=== PATIENT | female | born 1970 | race Caucasian/White ===

== ENCOUNTER → 2017-06-24 | Outpatient (CLI) | payer BC ==
--- NOTE | 2017-06-25 07:57 | MAMMOGRAPHY REPORT ---
BILATERAL DIGITAL SCREENING MAMMOGRAM TOMOSYNTHESIS WITH CAD: 06/24/2017 CLINICAL HISTORY: Routine screening. TECHNIQUE: Breast tomosynthesis in addition to standard 2D mammography was performed. Current study was also evaluated with a Computer Aided Detection (CAD) system. COMPARISON: Comparison is made to exams dated: 06/18/2016 mammogram, 06/06/2015 mammogram, 06/03/2014 ma mmogram, 04/14/2013 mammogram, 03/27/2012 mammogram, and 02/27/2011 mammogram - [facility]. BREAST COMPOSITION: There are scattered areas of fibroglandular density in both breasts. FINDINGS: There is stable 3 x 4 cm focal asymmetry in the 12:00 left breast, which is unchanged datin g back to at least 02/27/2011, therefore likely benign. No new suspicious mass, architectural distor tion or cluster of microcalcifications is seen. IMPRESSION: ACR BI-RADS CATEGORY 1: NEGATIVE There is no mammographic evidence of malignancy. A 1 year screening mammogram is recommended. The pa tient will receive written notification of the results. Approximately 10% of breast cancers are not detected with mammography. A negative mammographic report should not delay biopsy if a clinically suggestive mass is present. Rosa Elena Powell M.D. ay/:06/24/2017 16:11:17 Rn Concurrent Review: Flako PLATA(Tiago)(M), [facility] letter sent: Normal 1/2 BI-RADS Code: ACR BI-RADS Category 1: Negative
== END | disposition home or self-care (01) ==
LOC: C.MAMM 07:52
PROVIDERS: ATTEND Obstetrics & Gynecology
DX: Z12.31 Encounter for screening mammogram for malignant neoplasm of breast (principal)

== ENCOUNTER → 2017-09-18 | Outpatient (CLI) | payer BC | END | disposition home or self-care (01) | LOC: C.PAPS 12:07 | PROVIDERS: ATTEND Obstetrics & Gynecology | DX: Z01.419 Encounter for gynecological examination (general) (routine) without abnormal findings (principal) ==

== ENCOUNTER → 2018-06-30 | Outpatient (CLI) | payer OTHER ==
--- NOTE | 2018-07-01 13:38 | MAMMOGRAPHY REPORT ---
BILATERAL DIGITAL SCREENING MAMMOGRAM TOMOSYNTHESIS WITH CAD: 06/30/2018 CLINICAL HISTORY: Routine screening. TECHNIQUE: The study was acquired using full field digital technology and interpreted from soft copy. Breast tomosynthesis in addition to standard 2D mammography was performed. Current study was also ev aluated with a Computer Aided Detection (CAD) system. COMPARISON: Comparison is made to exams dated: 06/24/2017 mammogram, 06/18/2016 mammogram, 06/06/2015 ma mmogram, 06/03/2014 mammogram, 04/14/2013 mammogram, and 03/27/2012 mammogram - [facility]. BREAST COMPOSITION: There are scattered areas of fibroglandular density in both breasts. FINDINGS: There is a possible focal area of architectural distortion in the approximate 12:00 middle one third of the right breast, for which additional spot compression tomosynthesis views and possible ultrasound are recommended. There is a stable 3.7 cm focal asymmetry in the central versus 12:00 left breast. No other suspicious mass, architectural distortion or cluster of microcalcifications is seen. IMPRESSION: ACR BI-RADS CATEGORY 0: INCOMPLETE EVALUATION: NEED ADDITIONAL IMAGING EVALUATION The possible focal area of architectural distortion in the approximate 12:00 right breast needs addit ional evaluation. The patient will be called to schedule an appointment. Some breast cancers are not detected with mammography. A negative mammographic report should not maykel y biopsy if a clinically suggestive mass is present. Rosa Elena Powell M.D. ay/:06/30/2018 19:37:06 Peripheral Edp Equipment Operator: RT Bong(R)(M), [facility] letter sent: Addl Imaging 0 BI-RADS Code: ACR BI-RADS Category 0: Incomplete Evaluation: Need Additional Imaging Evaluation
== END | disposition home or self-care (01) ==
LOC: C.MAMM 08:08
PROVIDERS: ATTEND Obstetrics & Gynecology
DX: Z12.31 Encounter for screening mammogram for malignant neoplasm of breast (principal); R92.8 Other abnormal and inconclusive findings on diagnostic imaging of breast

== ENCOUNTER 2019-02-08 21:02 | Inpatient (IN) ==
[2019-02-08] MEDS ORDERED: SODIUM CHLORIDE 0.9% 1000ML 2,000 ML IV ONE (21:16)
[2019-02-08] MEDS ORDERED: KETOROLAC TROMETHAMINE 15 MG/ML VIAL IV ONE (21:16)
[2019-02-08] MEDS ORDERED: ASPIRIN CHEW 324 MG PO STA (21:16)
[2019-02-08] MEDS ORDERED: LORazepam 1 MG/2 ML VIAL IV STA (21:16)
[2019-02-08 21:38] LABS: Basophils # (auto) 0.03 K/uL (0-0.2); Basophils % (auto) 0.3 %; Eosinophils # (auto) 0.09 K/uL (0-0.5); Eosinophils % (auto) 0.8 %; Hematocrit (blood only) 41.6 % (37-47); Hemoglobin 14.3 g/dL (12.0-16.0); Immature Granulocytes # (auto) 0.04 K/uL (0.00-0.02); Immature Granulocytes % (auto) 0.4 %; Lymphocytes # (auto) 3.27 K/uL (1.2-3.4); Lymphocytes % (auto) 30.1 %; Mean Corpuscular Hgb Conc 34.4 g/dL (32-36); Mean Corpuscular Volume 87.6 fL (80-100); Mean Platelet Volume 10.3 fL (7.4-10.4); Monocytes # (auto) 0.98 K/uL (0.11-0.59); Neutrophils # (auto) 6.46 K/uL (1.4-6.5); Neutrophils % (auto) 59.4 %; Platelet Count 207 K/uL (130-400); RDW Coefficient of Variation 13.3 % (11.5-14.5); RDW Standard Deviation 42.3 fL (36.4-46.3); Red Blood Count 4.75 M/uL (4.2-5.4); White Blood Count 10.87 K/uL (4.8-10.8)
[2019-02-08 21:54] LABS: Albumin Level 3.5 gm/dl (3.4-5.0); BUN Creatinine Ratio 8.1 (10-20); Calcium 9.8 mg/dl (8.5-10.1); Creatinine Clr Calc Pharmacy 85.3 ml/min; Est GFR (African American) 66.6; Est GFR (Non-African American) 57.4; Potassium 3.5 mmol/L (3.5-5.1)
[2019-02-08 22:09] LABS: Bilirubin,Total 0.5 mg/dl (0.2-1); Troponin I 0.082 ng/ml (0-0.045)
[2019-02-08 22:10] LABS: Albumin Globulin Ratio 0.8 (0.9-2); Globulin 4.5 gm/dl (2.5-4.0)
--- NOTE | 2019-02-08 22:14 | XRay Report ---
SINGLE VIEW CHEST CLINICAL HISTORY: Atypical chest pain. FINDINGS: An AP, portable, upright chest radiograph is obtained. No prior studies are available for c omparison at the time of dictation. The examination is degraded by portable technique, large body hab itus, and patient rotation. The cardiomediastinal silhouette is unremarkable. There are low lung vol umes and bibasilar atelectasis. The lungs and pleural spaces are otherwise clear. No pneumothorax is seen. The bony thorax is grossly intact. IMPRESSION: Low lung volumes with no acute cardiopulmonary abnormality. Electronically signed by: Zaid Borges M.D. 02/08/2019 10:13 PM
[2019-02-08] MEDS ORDERED: OPTIRAY 320 125ml IV PRN (22:43)
--- NOTE | 2019-02-08 23:03 | CT Scan Report ---
CT ANGIOGRAM OF THE CHEST CLINICAL HISTORY: Atypical chest pain. COMPARISON STUDY: Chest x-ray dated 02/08/2019. TECHNIQUE: Following the IV administration of 119 cc of Optiray 320, CT angiogram of the chest was pe rformed from the upper abdomen to the thoracic inlet utilizing the pulmonary embolus protocol. Images are reviewed in the axial, sagittal, and coronal planes. 3-D MIPS images are created and assessed. I V contrast was administered without complication. A dose lowering technique was utilized adhering to the principles of ALARA. The examination is degraded by large body habitus, and by streak artifact f rom the body wall abutting the CT gantry. CT DOSE: 564.42 mGycm FINDINGS: Thyroid: Imaged portions of the thyroid gland are normal in size and attenuation. Thoracic aorta: The thoracic aorta is normal in caliber and demonstrates standard 3-vessel arch anato my. No dissection is seen. Pulmonary vasculature: The pulmonary trunk is mildly dilated measuring up to 3.2 cm in diameter. This suggests pulmonary artery hypertension. There are bilateral pulmonary emboli. Large filling defect i dentified within the right upper, middle, and lower lobe pulmonary artery branches. These extend into Segmental and subsegmental branches. Segmental and subsegmental pulmonary bladder also seen within b ranches of the left upper and left lower lobe pulmonary arteries. Heart: The heart is normal in size and without pericardial effusion. Lungs and pleural spaces: The lungs and pleural spaces are clear. The trachea and central airways are patent. Mediastinum: There is no mediastinal lymphadenopathy. Kim: Clear. Axillae: There is no axillary lymphadenopathy. Upper abdomen: The liver is enlarged and steatotic. There is a tiny hiatal hernia. Skeletal structures: No lytic or blastic bony lesions are seen. Soft tissues: There is a 3.8 cm asymmetric density identified in the left breast as seen on image #20 0. IMPRESSION: 1. Extensive bilateral pulmonary emboli as above. 2. The lungs are clear. 3. There is a 3.8 cm asymmetric density identified in the left breast. Although not well assessed by CT, neoplasm could have this appearance. Follow-up at the breast center for mammogram and targeted ul trasound is recommended. 4. Hepatomegaly and hepatic steatosis. 5. Additional findings as above. Electronically signed by: Zaid Borges M.D. 02/08/2019 11:02 PM
[2019-02-08 23:19] LABS: Partial Thromboplastin Ratio 0.9; Partial Thromboplastin Time 23.9 Seconds (21.0-31.0); Prothrombin Time 10.2 Seconds (9.0-12.0)
[2019-02-08] MEDS ORDERED: HEPARIN 25000 UNIT/500 ML D5W IV ONE (23:41)
[2019-02-08] MEDS ORDERED: HEPARIN SOD 5,000 UNIT/0.5 ML VIAL ONE (23:41)
--- NOTE | 2019-02-09 00:19 | Emergency Department Note ---
Entered by Abelardo Aguirre acting as a scribe for Remberto Crespo DO History of Present Illness General Chief complaint: Chest Pain Stated complaint: REFERRED FOR CTS - R/O PE, CHEST PAIN Source: patient Limitations: no limitations History of Present Illness Provider complaint: Chest Pain Onset (ago): day(s) (2) Location: chest Pain Consistency: + intermittent Maximum Pain Intensity: 5 Quality: + other ("tightness" in chest) Associated symptoms: + cough, + headaches and + shortness of breath Treatments prior to arrival: other (Evaluation by PCP - D-dimer positive) The patient is a 48 year old female who presents to the Emergency Room with complaints of intermittent chest pain for the past two days. The patient states that her symptoms first began 1 week ago when she began to have difficulty sleeping. Two days ago she began to feel "tightness" across her chest intermittently. She also complains of a persistent cough, runny nose, and shortness of breath with minimal exertion. She notes that she felt short of breath with "changing her sheets" which is very unusual for her. She has also had a constant headache since Friday as well. The patient saw her PCP today who obtained a positive D-dimer test. The patient denies any history of heart disease, smoking, blood clots, or recent rips/travel. She does have a history of hypertension. Home Medications Home Medications Medication Instructions Recorded Confirmed Type ascorbic acid (vitamin C) [Vitamin 500 mg PO DAILY 02/08/19 02/08/19 History C] biotin 1 mg PO DAILY 02/08/19 02/08/19 History calcium carbonate-vitamin D3 1 tab PO DAILY 02/08/19 02/08/19 History [Calcium 500 + D (D3)] cholecalciferol (vitamin D3) 1,000 unit PO DAILY 02/08/19 02/08/19 History [Vitamin D3] clonazepam [Klonopin] 0.5 mg PO BID PRN 02/08/19 02/08/19 History fluticasone propionate [Flonase 2 spray INTRANASAL DAILY PRN 02/08/19 02/08/19 History Allergy Relief] levothyroxine [Synthroid] 25 mcg PO DAILY 02/08/19 02/08/19 History losartan-hydrochlorothiazide 1 tab PO DAILY 02/08/19 02/08/19 History [Hyzaar] meloxicam [Mobic] 15 mg PO DAILY 02/08/19 02/08/19 History metformin [Glucophage XR] 750 mg PO BID 02/08/19 02/08/19 History montelukast [Singulair] 10 mg PO DAILY 02/08/19 02/08/19 History multivitamin 1 tab PO DAILY 02/08/19 02/08/19 History norgestimate-ethinyl estradiol 1 tab PO DAILY 02/08/19 02/08/19 History [Sprintec (28)] Allergies Allergy/AdvReac Type Severity Reaction Status Date / Time Tetracyclines AdvReac Severe chest Verified 02/08/19 23:02 tightness erythromycin base AdvReac yeast Verified 02/08/19 23:02 infection Past Med/Surg History Medical History HTN (hypertension) Social History Smoking Status: Never smoker Review of Systems See HPI for pertinent positives & negatives. and A total of 10 systems reviewed and were otherwise negative Physical Exam Vital Signs Vital Signs - 24 hr 02/08/19 21:07 02/08/19 21:10 02/08/19 22:00 Sepsis Recent Fever Within 48 Hours No Sepsis New/Unexplained Change in Mental Status No Sepsis Action Taken by Nursing No Action Required Pulse Rate 108 H 115 H 99 H Pulse Rate from SpO2 Sensor 115 H Pulse Rhythm Regular Pulse Strength Normal Respiratory Rate 20 22 22 Respiratory Effort / Characteristics Non-Labored Spontaneous Respiratory Depth Normal Respiratory Pattern Regular Blood Pressure 141/101 H 160/109 H 155/89 H Blood Pressure Mean 114 126 111 Pulse Oximetry 96 98 Oxygen Delivery Method Room Air 02/08/19 22:46 02/08/19 23:01 02/08/19 23:31 Sepsis Recent Fever Within 48 Hours Sepsis New/Unexplained Change in Mental Status Sepsis Action Taken by Nursing Pulse Rate 104 H 112 H 107 H Pulse Rate from SpO2 Sensor Pulse Rhythm Pulse Strength Respiratory Rate 19 27 H 26 H Respiratory Effort / Characteristics Respiratory Depth Respiratory Pattern Blood Pressure 157/90 H 169/91 H 168/92 H Blood Pressure Mean 112 117 117 Pulse Oximetry 95 96 97 Oxygen Delivery Method GENERAL: Sitting up in bed, alert, anxious and tearful appearing, non-toxic EYE EXAM: normal conjunctiva. OROPHARYNX: no exudate, no erythema, lips, buccal mucosa, and tongue normal and mucous membranes are moist NECK: supple, no nuchal rigidity, no adenopathy, non-tender LUNGS: Clear to auscultation. Normal chest wall mechanics HEART: Tachycardic. no murmurs, S1 normal and S2 normal ABDOMEN: abdomen soft, non-tender, normo-active bowel, sounds, no masses, no rebound or guarding. BACK: Back is symmetrical on inspection and there is no deformity, no midline tenderness, no CVA tenderness. SKIN: no rashes and no bruising UPPER EXTREMITIES: upper extremities are grossly normal. LOWER EXTREMITIES: No pitting edema. NEURO EXAM: Normal sensorium, cranial nerves II-XII grossly intact, normal speech, no gross weakness of arms, no gross weakness of legs. Course ED COURSE: Vital signs were reviewed and showed hypertension and tachycardia. The patients medical record was reviewed The above diagnostic studies were performed and reviewed. ED treatments and interventions as stated above. 2108: The patient was evaluated in room A9B. A complete history and physical examination was performed. 2306: I made the [facility] Hospitalist Service aware of the patient at this time. 2310: Upon reevaluation, the patient is resting in bed. I discussed my findings with the patient and she understands and agrees with the treatment plan. Based on the patients age, coexisting illnesses, exam and lab findings the decision to treat as an inpatient was made. The patient remained stable while under my care. The patient will be evaluated for further management. Administered Medications Ioversol (Optiray 320 125ml) 125 ml IV ONCE PRN PRN Reason: Interaction Checking Stop: 02/12/19 22:42 Last Admin: 02/08/19 22:43 Dose: 119 ml Documented by: [id number] Discontinued Medications Aspirin (Aspirin) 324 mg PO NOW STA Stop: 02/08/19 21:17 Last Admin: 02/08/19 21:43 Dose: 324 mg Documented by: [id number] Heparin Sodium (Porcine) (Heparin Sodium (Porcine)) Confirm Administered Dose 5,000 units .ROUTE .STK-MED ONE Stop: 02/08/19 23:42 Last Admin: 02/08/19 23:51 Dose: 5,000 units Documented by: [id number] Cosigned by: [id number] Heparin Sodium/Dextrose () 1 ea IV NOW STA; Protocol Stop: 02/08/19 22:50 Last Admin: 02/08/19 23:52 Dose: Not Given Documented by: [id number] Heparin Sodium/Dextrose (Heparin Sodium/Dextrose) Confirm Administered Dose 25,000 units IV .STK-MED ONE Stop: 02/08/19 23:42 Last Admin: 02/08/19 23:51 Dose: 1,600 units Documented by: [id number] Cosigned by: [id number] Sodium Chloride (Nss 1000ml) 2,000 mls @ 999 mls/hr IV .Q2H1M ONE Stop: 02/08/19 23:16 Last Infusion: 02/08/19 23:57 Dose: 0 mls/hr Documented by: [id number] Admin: 02/08/19 21:45 Dose: 999 mls/hr Documented by: [id number] Lorazepam (Ativan) 1 mg in 2 mls @ 0.5 mls/min IV UD STA Stop: 02/08/19 21:19 Last Admin: 02/08/19 21:44 Dose: 0.5 mls/min Documented by: [id number] Ketorolac Tromethamine (Toradol) 15 mg IV NOW ONE Stop: 02/08/19 21:17 Last Admin: 02/08/19 21:43 Dose: 15 mg Documented by: [id number] Medical Decision Making Differential Diagnosis Differential diagnosis: Etiologies such as shingles, musculoskeletal pain, pericarditis, myocarditis, cardiac ischemia, pericardial tamponade, pneumonia, pneumothorax, pleural effusion, hemothorax, pleurisy, aortic pathology, pulmonary embolism, intra- abdominal process, as well as others were considered. Medical Records Attestation: I reviewed the patient's medical records. Home Medications Current Medication List: was personally reviewed by me Laboratory Data Attestation: I reviewed the patient's lab results. Result diagrams: 02/08/19 21:26 02/08/19 21:26 Lab Results 02/08/19 02/08/19 02/08/19 Range/Units 21:26 21:26 21:27 WBC 10.87 H (4.8-10.8) K/uL RBC 4.75 (4.2-5.4) M/uL Hgb 14.3 (12.0-16.0) g/dL Hct 41.6 (37-47) % MCV 87.6 (80-100) fL MCH 30.1 (25-34) pg MCHC 34.4 (32-36) g/dL RDW Std Deviation 42.3 (36.4-46.3) fL RDW Coeff of Izabel 13.3 (11.5-14.5) % Plt Count 207 (130-400) K/uL MPV 10.3 (7.4-10.4) fL Immature Gran % (Auto) 0.4 % Neut % (Auto) 59.4 % Lymph % (Auto) 30.1 % Yell % (Auto) 9.0 % Eos % (Auto) 0.8 % Baso % (Auto) 0.3 % Immature Gran # (Auto) 0.04 H (0.00-0.02) K/uL Neut # (Auto) 6.46 (1.4-6.5) K/uL Lymph # (Auto) 3.27 (1.2-3.4) K/uL Yell # (Auto) 0.98 H (0.11-0.59) K/uL Eos # (Auto) 0.09 (0-0.5) K/uL Baso # (Auto) 0.03 (0-0.2) K/uL PT 10.2 (9.0-12.0) Seconds INR 1.0 (0.9-1.1) APTT 23.9 (21.0-31.0) Seconds PTT Ratio 0.9 Sodium 140 (136-145) mmol/L Potassium 3.5 (3.5-5.1) mmol/L Chloride 107 (98-107) mmol/L Carbon Dioxide 25 (21-32) mmol/L Anion Gap 8.0 (3-11) BUN 9 (7-18) mg/dl Creatinine 1.13 (0.6-1.2) mg/dl Est Cr Clr Drug Dosing 85.3 ml/min Est GFR ( Amer) 66.6 Est GFR (Non-Af Amer) 57.4 BUN/Creatinine Ratio 8.1 L (10-20) Glucose 106 H (70-99) mg/dl Calcium 9.8 (8.5-10.1) mg/dl Total Bilirubin 0.5 (0.2-1) mg/dl AST 26 (15-37) U/L ALT 35 (12-78) U/L Alkaline Phosphatase 91 (45-117) U/L Troponin I 0.082 H* (0-0.045) ng/ml Total Protein 8.0 (6.4-8.2) gm/dl Albumin 3.5 (3.4-5.0) gm/dl Globulin 4.5 H (2.5-4.0) gm/dl Albumin/Globulin Ratio 0.8 L (0.9-2) Lipase 150 (73-393) U/L Imaging Data Attestation: I personally reviewed and interpreted this imaging study as follows: Radiologist's Impression: SINGLE VIEW CHEST CLINICAL HISTORY: Atypical chest pain. FINDINGS: An AP, portable, upright chest radiograph is obtained. No prior studies are available for comparison at the time of dictation. The examination is degraded by portable technique, large body habitus, and patient rotation. The cardiomediastinal silhouette is unremarkable. There are low lung volumes and bibasilar atelectasis. The lungs and pleural spaces are otherwise clear. No pneumothorax is seen. The bony thorax is grossly intact. IMPRESSION: Low lung volumes with no acute cardiopulmonary abnormality. Electronically signed by: Zaid Borges M.D. 02/08/2019 10:[address] ANGIOGRAM OF THE CHEST CLINICAL HISTORY: Atypical chest pain. COMPARISON STUDY: Chest x-ray dated 02/08/2019. TECHNIQUE: Following the IV administration of 119 cc of Optiray 320, CT angiogram of the chest was performed from the upper abdomen to the thoracic inlet utilizing the pulmonary embolus protocol. Images are reviewed in the axial, sagittal, and coronal planes. 3-D MIPS images are created and assessed. IV contrast was administered without complication. A dose lowering technique was utilized adhering to the principles of ALARA. The examination is degraded by large body habitus, and by streak artifact from the body wall abutting the CT gantry. CT DOSE: 564.42 mGycm FINDINGS: Thyroid: Imaged portions of the thyroid gland are normal in size and attenuation. Thoracic aorta: The thoracic aorta is normal in caliber and demonstrates standard 3-vessel arch anatomy. No dissection is seen. Pulmonary vasculature: The pulmonary trunk is mildly dilated measuring up to 3.2 cm in diameter. This suggests pulmonary artery hypertension. There are bilateral pulmonary emboli. Large filling defect identified within the right upper, middle, and lower lobe pulmonary artery branches. These extend into Segmental and subsegmental branches. Segmental and subsegmental pulmonary bladder also seen within branches of the left upper and left lower lobe pulmonary arteries. Heart: The heart is normal in size and without pericardial effusion. Lungs and pleural spaces: The lungs and pleural spaces are clear. The trachea an d central airways are patent. Mediastinum: There is no mediastinal lymphadenopathy. Kim: Clear. Axillae: There is no axillary lymphadenopathy. Upper abdomen: The liver is enlarged and steatotic. There is a tiny hiatal hernia. Skeletal structures: No lytic or blastic bony lesions are seen. Soft tissues: There is a 3.8 cm asymmetric density identified in the left breast as seen on image #200. IMPRESSION: 1. Extensive bilateral pulmonary emboli as above. 2. The lungs are clear. 3. There is a 3.8 cm asymmetric density identified in the left breast. Although not well assessed by CT, neoplasm could have this appearance. Follow-up at the breast center for mammogram and targeted ultrasound is recommended. 4. Hepatomegaly and hepatic steatosis. 5. Additional findings as above. Electronically signed by: Zaid Borges M.D. 02/08/2019 11:02 PM ECG Data Attestation: I personally reviewed and interpreted this ECG as follows: Indication: chest pain and SOB/dyspnea Rate (beats per minute): 116 Rhythm: sinus tachycardia Findings: + other (Low voltage) and + nonspecific-ST abn (inferior) Blood Pressure Blood Pressure Findings: Elevated blood pressure Blood Pressure Disposition: further management by hospitalist LEFTY Narrative Patient is a 48-year-old female who presents the ER referred in by PCP for shortness of breath. Patient notes that the shortness of breath has been getting worse with some chest pressure. Patient has minimal cardiac risk factors but d-dimer was positive and CT PE shows extensive bilateral PEs. Patient denied any bleeding risk factors. No history of previous brain bleed, recent trauma recent surgery, coughing up blood, vomiting blood, urinating blood or dark tarry stools. Patient was consented and placed on IV heparin drip and given an IV heparin bolus. She was updated bedside. Discussed with the hospitalist and discussed with the radiological technologist in the ER as well. Labs show no significant leukocytosis or anemia. INR was unremarkable. BMP along with bilirubin LFTs was unremarkable. Troponin was detectable at 0.082 which I do believe is secondary to PEs. Lipase was normal. EKG with some nonspecific ST wave changes. Patient was updated at bedside along with neighbor and was discussed with the hospitalist for admission for bilateral PEs per Impression & Plan Bilateral pulmonary embolism Critical Care Time I have personally spent greater than 45 minutes of critical care time in the direct management of this patient. This includes bedside care, interpretation of diagnostic studies, and testing, discussion with consultants, patient, and family members, and other required patient management activities. This 45 minutes is in excess of all separately billable procedures. Critical Care Time: Yes Total Critical Care Time: 45 Discharge Plan Visit Data Chief Complaint: Chest Pain Stated Complaint: REFERRED FOR CTS - R/O PE, CHEST PAIN ED Provider: Remberto Crespo Discharge Problem: Bilateral pulmonary embolism Patient Disposition: Being Evaluated by Hospitalist Forms Stand Alone Forms: Call Back Authorization, My [facility] Prescriptions Prescriptions: No Action multivitamin Tablet 1 tab PO DAILY RF: 0 norgestimate-ethinyl estradiol [Sprintec (28)] 0.25-35 mg-mcg tablet 1 tab PO DAILY RF: 0 meloxicam [Mobic] 15 mg tablet 15 mg PO DAILY RF: 0 clonazepam [Klonopin] 0.5 mg tablet 0.5 mg PO BID PRN (Reason: Anxiety) RF: 0 levothyroxine [Synthroid] 25 mcg tablet 25 mcg PO DAILY RF: 0 losartan-hydrochlorothiazide [Hyzaar] 100-25 mg tablet 1 tab PO DAILY RF: 0 ascorbic acid (vitamin C) [Vitamin C] 500 mg Tablet 500 mg PO DAILY RF: 0 montelukast [Singulair] 10 mg tablet 10 mg PO DAILY RF: 0 fluticasone propionate [Flonase Allergy Relief] 50 mcg/actuation [place],Suspension 2 spray INTRANASAL DAILY PRN (Reason: Congestion) RF: 0 cholecalciferol (vitamin D3) [Vitamin D3] 1,000 unit Capsule 1,000 unit PO DAILY RF: 0 metformin [Glucophage XR] 750 mg tablet extended release 24 hr 750 mg PO BID RF: 0 calcium carbonate-vitamin D3 [Calcium 500 + D (D3)] 500 mg(1,250mg) -125 unit Tablet 1 tab PO DAILY RF: 0 biotin 1 mg Capsule 1 mg PO DAILY RF: 0 Referrals Referrals: Kristi Lan MD [Primary Care Provider] - The scribe's documentation has been prepared under my direction and personally reviewed by me in its entirety. I confirm that the note above accurately reflects all work, treatment, procedures, and medical decision making performed by me.
[2019-02-09] MEDS ORDERED: FLUTICASONE PROPIONATE NA SPR 16 GM BTL NAE PRN (03:03)
[2019-02-09] MEDS ORDERED: clonazePAM 0.5 MG TAB PO PRN (03:03)
[2019-02-09] MEDS ORDERED: GLUCOSE 40% GEL 15 GM TUBE PO PRN (03:03)
[2019-02-09] MEDS ORDERED: MAGNESIUM HYDROXIDE SUSP 30 ML UDC PO PRN (03:03)
[2019-02-09] MEDS ORDERED: DEXTROSE 50% 50 ML SYRINGE IV PRN (03:03)
[2019-02-09] MEDS ORDERED: ACETAMINOPHEN 325 MG TAB PO PRN (03:03)
[2019-02-09] MEDS ORDERED: CARBOHYDRATES FOR HYPOGLYCEMIA PO PRN (03:03)
[2019-02-09] MEDS ORDERED: ONDANSETRON INJ 2 MG/ML 2 ML VIAL IV PRN (03:03)
[2019-02-09] MEDS ORDERED: GLUCAGON FOR INJ 1 MG VIAL SQ PRN (03:03)
[2019-02-09] MEDS ORDERED: MoRPHine SULFATE 2 MG/ML CARP IV PRN (03:03)
[2019-02-09] MEDS ORDERED: GLUCOSE 10 TABS/TUBE PO PRN (03:03)
[2019-02-09] MEDS ORDERED: POLYETHYLENE (MIRALAX) 17 GM PACK PO PRN (03:03)
[2019-02-09] MEDS ORDERED: ALUMINUM/MAGNESIUM SUSP 30 ML UDC PO PRN (03:03)
--- NOTE | 2019-02-09 04:55 | History & Physical Report ---
Date of Service February 09, 2019 Assessment & Plan (1) Bilateral pulmonary embolism: Bilateral pulmonary embolism/large clot burden right>> left/right heart strain with mildly elevated troponin 0 0.082-- Continue heparin drip begun in the ED. Lower extremity venous Dopplers that have been added are negative. Order hypercoagulable workup. Reevaluate left breast 3.8 cm lesion. She would like to follow-up with pulmonology Dr. Perkins as an outpatient. We will hold norgestimate-ethinylestradiol. Present on Admission?: Yes (2) NSTEMI (non-ST elevated myocardial infarction): The patient will be admitted to telemetry for serial cardiac enzymes, serial EKG's, cardiac rhythm monitoring and a 2-D echocardiogram with Dopplers. Heparin drip as noted above. Consult cardiology. Present on Admission?: Yes (3) Breast lesion: The patient reports having had regular mammograms, and last year was called back in for additional testing, that was reportedly negative. Encourage her to follow-up earlier at her earliest convenience with the breast care center to reassess the left 3.8 cm breast lesion. Present on Admission?: Yes (4) Diabetes mellitus: Hold metformin XR 750 mg p.o. twice daily. Placed on Accu-Cheks before meals and at bedtime with NovoLog coverage per scale Present on Admission?: Yes (5) Hypothyroidism (acquired): Continue levothyroxine sodium 25 mcg p.o. daily Present on Admission?: Yes (6) Hypertension: Hold losartan/HCTZ for now, due to borderline potassium and possible need for addition of a negative inotrope for heart rate control. Present on Admission?: Yes History of Present Illness Chief Complaint: The patient presents to the emergency department due to complaints of intermittent chest pain over the past few days, and a positive d- dimer performed by her PCP. Primary Care Provider: Kristi Lan MD The patient is a 48-year-old female who presents to the emergency department with intermittent chest pain/pressure over the past few days, with an abnormal d-dimer blood test in the outpatient setting, and also relates difficulty with an episode of right lower extremity cramping that began prior to the chest discomfort. She has not had any recent travels or sick exposures. She has never had clots in the past, and there is no family history of clots. She does have an intermittent nonproductive cough, and denies any fevers or chills. Allergies Allergy/AdvReac Type Severity Reaction Status Date / Time Tetracyclines AdvReac Severe chest Verified 02/08/19 23:02 tightness erythromycin base AdvReac yeast Verified 02/08/19 23:02 infection Home Medications Home Medications Medication Instructions Recorded Confirmed Type ascorbic acid (vitamin C) [Vitamin 500 mg PO DAILY 02/08/19 02/08/19 History C] biotin 1 mg PO DAILY 02/08/19 02/08/19 History calcium carbonate-vitamin D3 1 tab PO DAILY 02/08/19 02/08/19 History [Calcium 500 + D (D3)] cholecalciferol (vitamin D3) 1,000 unit PO DAILY 02/08/19 02/08/19 History [Vitamin D3] clonazepam [Klonopin] 0.5 mg PO BID PRN 02/08/19 02/08/19 History fluticasone propionate [Flonase 2 spray INTRANASAL DAILY PRN 02/08/19 02/08/19 History Allergy Relief] levothyroxine [Synthroid] 25 mcg PO DAILY 02/08/19 02/08/19 History losartan-hydrochlorothiazide 1 tab PO DAILY 02/08/19 02/08/19 History [Hyzaar] meloxicam [Mobic] 15 mg PO DAILY 02/08/19 02/08/19 History metformin [Glucophage XR] 750 mg PO BID 02/08/19 02/08/19 History montelukast [Singulair] 10 mg PO DAILY 02/08/19 02/08/19 History multivitamin 1 tab PO DAILY 02/08/19 02/08/19 History norgestimate-ethinyl estradiol 1 tab PO DAILY 02/08/19 02/08/19 History [Sprintec (28)] Past Med/Surg History Medical History HTN (hypertension) Social History Preferred Language: Mauritian Communication Ability: Effective Customer Management Specialist Required: No Beliefs That Will Affect Care: None Current Living Situation: Alone Other Information That Helps Us Care for You: No Feels Safe at Home: Yes Safety Concerns: Feels Safe At This Time Smoking Status: Never smoker Hx Alcohol Use: Yes Hx Substance Use: No Review of Systems The patient denies palpitations, lower extremity swelling, sore throat, fevers, chills, sweats, nausea, vomiting, diarrhea , constipation, abdominal pain, pelvic pain, blood in urine or stool, dysuria, urinary frequency or urgency, lightheadedness, dizziness, headache, memory loss, loss of consciousness, rash, abnormal bruising or bleeding, imbalance, focal or generalized weakness, numbness or tingling in arms, generalized arthralgias or myalgias, back or neck pain, or night sweats. The review of systems is otherwise negative other than for that already noted above, and at least 10 systems have been reviewed. Physical Exam Vital Signs (Past 24 Hours): Last Vital Signs Temp 36.8 C 02/09/19 02:39 Pulse 110 H 02/09/19 02:39 Resp 20 02/09/19 02:39 BP 135/82 02/09/19 02:39 Pulse Ox 97 02/09/19 02:39 Physical Exam: The patient is awake, alert and oriented 3, well developed and well nourished, normocephalic and atraumatic, lying in bed and in no acute distress. HEENT--PERRL, EOMI, mucous membranes and oropharynx dry. Neck--supple. No JVD. No bruits. Thyroid normal, trachea midline, no adenopathy. Heart--normal S1 and S2. No murmurs, rubs or gallops. Lungs--clear bilaterally, no respiratory distress, no accessory muscle use. Abdomen--normal bowel sounds and soft. Nontender. Nondistended, no hernias or masses, no organomegaly. Extremities--no cyanosis or clubbing. Right lower extremity with trace to 1+ pitting edema and approximately 1-1/4- 1 1/2 times the size of the left. There are good distal pulses b/l. Dermatologic--normal skin turgor, normal color, no abnormal lymph nodes, no rash. Neurologic--cranial nerves II through XII grossly intact. Rheumatologic--normal range of motion. Psychiatric--normal affect. Results & Data Laboratory Results Laboratory Results WBC 10.87 K/uL (4.8-10.8) H 02/08/19 21:26 RBC 4.75 M/uL (4.2-5.4) 02/08/19 21:26 Hgb 14.3 g/dL (12.0-16.0) 02/08/19 21:26 Hct 41.6 % (37-47) 02/08/19 21: MCV 87.6 fL (80-100) 02/08/19 21:26 MCH 30.1 pg (25-34) 02/08/19 21: MCHC 34.4 g/dL (32-36) 02/08/19 21: RDW Std Deviation 42.3 fL (36.4-46.3) 02/08/19 21: RDW Coeff of Izabel 13.3 % (11.5-14.5) 02/08/19 21: Plt Count 207 K/uL (130-400) 02/08/19 21: MPV 10.3 fL (7.4-10.4) 02/08/19 21: Immature Gran % (Auto) 0.4 % 02/08/19 21: Neut % (Auto) 59.4 % 02/08/19 21:26 Lymph % (Auto) 30.1 % 02/08/19 21:26 Harris % (Auto) 9.0 % 02/08/19 21: Eos % (Auto) 0.8 % 02/08/19 21: Baso % (Auto) 0.3 % 02/08/19 21:26 Immature Gran # (Auto) 0.04 K/uL (0.00-0.02) H 02/08/19 21:26 Neut # (Auto) 6.46 K/uL (1.4-6.5) 02/08/19 21: Lymph # (Auto) 3.27 K/uL (1.2-3.4) 02/08/19 21:26 Harris # (Auto) 0.98 K/uL (0.11-0.59) H 02/08/19 21:26 Eos # (Auto) 0.09 K/uL (0-0.5) 02/08/19 21:26 Baso # (Auto) 0.03 K/uL (0-0.2) 02/08/19 21:26 PT 10.2 Seconds (9.0-12.0) 02/08/19 21:27 INR 1.0 (0.9-1.1) 02/08/19 21:27 APTT 23.9 Seconds (21.0-31.0) 02/08/19 21:27 PTT Ratio 0.9 02/08/19 21:27 Sodium 140 mmol/L (136-145) 02/08/19 21:26 Potassium 3.5 mmol/L (3.5-5.1) 02/08/19 21:26 Chloride 107 mmol/L (98-107) 02/08/19 21:26 Carbon Dioxide 25 mmol/L (21-32) 02/08/19 21:26 Anion Gap 8.0 (3-11) 02/08/19 21:26 BUN 9 mg/dl (7-18) 02/08/19 21:26 Creatinine 1.13 mg/dl (0.6-1.2) 02/08/19 21:26 Est Cr Clr Drug Dosing 85.3 ml/min 02/08/19 21:26 Est GFR ( Amer) 66.6 02/08/19 21:26 Est GFR (Non-Af Amer) 57.4 02/08/19 21:26 BUN/Creatinine Ratio 8.1 (10-20) L 02/08/19 21:26 Glucose 106 mg/dl (70-99) H 02/08/19 21:26 Calcium 9.8 mg/dl (8.5-10.1) 02/08/19 21:26 Total Bilirubin 0.5 mg/dl (0.2-1) 02/08/19 21:26 AST 26 U/L (15-37) 02/08/19 21:26 ALT 35 U/L (12-78) 02/08/19 21:26 Alkaline Phosphatase 91 U/L (45-117) 02/08/19 21:26 Troponin I 0.082 ng/ml (0-0.045) H* 02/08/19 21:26 Total Protein 8.0 gm/dl (6.4-8.2) 02/08/19 21:26 Albumin 3.5 gm/dl (3.4-5.0) 02/08/19 21:26 Globulin 4.5 gm/dl (2.5-4.0) H 02/08/19 21:26 Albumin/Globulin Ratio 0.8 (0.9-2) L 02/08/19 21:26 Lipase 150 U/L (73-393) 02/08/19 21:26 Diagnostic Findings [place], [place] [phone] CT Scan Report Patient: FAVIAN CHAPARROAdmit Date: 02/08/19 MR#: [id number]: [id number] Acct ID:[id number]: Date: 1970City Zip: [place] [address] Age: 48Location: ED Sex: F Room/Bed: Att Phy: Diagnosis: REFERRED FOR CTS - R/O PE, CHEST PAIN Kamini Phy: Kristi Lan M.D.Service Date: 02/08/19 Fam Phy: Interpreting Phy: Zaid Borges MD Admit Phy: Ordering Phy: Remberto Crespo, cc: ~ CT ANGIOGRAM OF THE CHEST CLINICAL HISTORY: Atypical chest pain. COMPARISON STUDY: Chest x-ray dated 02/08/2019. TECHNIQUE: Following the IV administration of 119 cc of Optiray 320, CT angiogram of the chest was performed from the upper abdomen to the thoracic inlet utilizing the pulmonary embolus protocol. Images are reviewed in the axial, sagittal, and coronal planes. 3-D MIPS images are created and assessed. IV contrast was administered without complication. A dose lowering technique was utilized adhering to the principles of ALARA. The examination is degraded by large body habitus, and by streak artifact from the body wall abutting the CT gantry. CT DOSE: 564.42 mGycm FINDINGS: Thyroid: Imaged portions of the thyroid gland are normal in size and attenuation. Thoracic aorta: The thoracic aorta is normal in caliber and demonstrates standard 3-vessel arch anatomy. No dissection is seen. Pulmonary vasculature: The pulmonary trunk is mildly dilated measuring up to 3.2 cm in diameter. This suggests pulmonary artery hypertension. There are bilateral pulmonary emboli. Large filling defect identified within the right upper, middle, and lower lobe pulmonary artery branches. These extend into Segmental and subsegmental branches. Segmental and subsegmental pulmonary bladder also seen within branches of the left upper and left lower lobe pulmonary arteries. Heart: The heart is normal in size and without pericardial effusion. Lungs and pleural spaces: The lungs and pleural spaces are clear. The trachea and central airways are patent. Mediastinum: There is no mediastinal lymphadenopathy. Kim: Clear. Axillae: There is no axillary lymphadenopathy. Upper abdomen: The liver is enlarged and steatotic. There is a tiny hiatal hernia. Skeletal structures: No lytic or blastic bony lesions are seen. Soft tissues: There is a 3.8 cm asymmetric density identified in the left breast as seen on image #200. IMPRESSION: 1. Extensive bilateral pulmonary emboli as above. 2. The lungs are clear. 3. There is a 3.8 cm asymmetric density identified in the left breast. Although not well assessed by CT, neoplasm could have this appearance. Follow-up at the breast center for mammogram and targeted ultrasound is recommended. 4. Hepatomegaly and hepatic steatosis. 5. Additional findings as above. Electronically signed by: Zaid Borges M.D. 02/08/2019 11:02 PM Dictated: 02/08/192253 Transcribed: 02/08/19 225 [place], [place] [phone] XRay Report Patient: John CHAPARROit Date: 02/08/19 MR#: [id number]: [id number] Acct ID:[id number]: Date: 1970[facility] Zip: [place] [address] Age: 48Location: ED Sex: F Room/Bed: Att Phy: Diagnosis: REFERRED FOR CTS - R/O PE, CHEST PAIN Kamini Phy: Kristi Lan M.D.Service Date: 02/08/19 Fam Phy: Interpreting Phy: Zaid Borges MD Admit Phy: Ordering Phy: Remberto Crespo, cc: ~ SINGLE VIEW CHEST CLINICAL HISTORY: Atypical chest pain. FINDINGS: An AP, portable, upright chest radiograph is obtained. No prior studies are available for comparison at the time of dictation. The examination is degraded by portable technique, large body habitus, and patient rotation. The cardiomediastinal silhouette is unremarkable. There are low lung volumes and bibasilar atelectasis. The lungs and pleural spaces are otherwise clear. No pneumothorax is seen. The bony thorax is grossly intact. IMPRESSION: Low lung volumes with no acute cardiopulmonary abnormality. Electronically signed by: Zaid Borges M.D. 02/08/2019 10:13 PM Dictated: 02/08/19 2212 Transcribed: 02/08/19 221 Ultrasound Venous Dopplers bilateral lower extremities: No DVT demonstrated Code Status & VTE Plan Code Status Full code VTE Prophylaxis Plan VTE Prophylaxis will be ordered: Yes
[2019-02-09] MEDS ORDERED: LEVOTHYROXINE SODIUM 25 MCG TABLET PO SCH (06:30)
[2019-02-09 06:41] LABS: Estimated Average Glucose 105 mg/dl; Hemoglobin A1C 5.3 % (4.5-5.6)
[2019-02-09 06:44] LABS: Partial Thromboplastin Ratio 1.6
--- NOTE | 2019-02-09 06:45 | Ultrasound Report ---
BILATERAL LOWER EXTREMITY VENOUS DOPPLER CLINICAL HISTORY: Pulmonary emboli. COMPARISON STUDY: No previous studies for comparison. TECHNIQUE: Sonography of the deep venous system of the bilateral lower extremities was performed. Co mpression and augmentation were evaluated. FINDINGS: The bilateral common femoral, superficial femoral and popliteal veins were compressible. A ugmentation was normal. Flow was shown within the deep calf vessels. IMPRESSION: No evidence of deep venous thrombus within the bilateral lower extremities. Electronically signed by: Jaime Vargas M.D. 02/09/2019 6:44 AM
[2019-02-09] MEDS: HEPARIN SODIUM/DEXTROSE 25,000 UNITS/500 ML BAG IV SCH ×2 (06:59→14:17)
[2019-02-09] MEDS ORDERED: HEPARIN IV BOLUS 4,000 UNITS in SYRINGE 0 ML IV ONE (07:15)
[2019-02-09] MEDS ORDERED: INSULIN ASPART 100 UNITS/ML 3 ML PEN SC SCH (07:30)
--- NOTE | 2019-02-09 07:32 | Family Medicine Progress Note ---
Date of Service February 09, 2019 Assessment & Plan (1) Bilateral pulmonary embolism: Ms Crowder is a 48 year old female with a past medical history of HTN, Hypothyroidism, and Diabetes Mellitus who presented to [facility] due to chest pain. Bilateral pulmonary embolism/large clot burden right>> left/right heart strain with mildly elevated troponin 0 0.082-- Continue heparin drip begun in the ED. Lower extremity venous Dopplers that have been added are negative. Order hypercoagulable workup. Reevaluate left breast 3.8 cm lesion. She would like to follow-up with pulmonology Dr. Perkins as an outpatient. We will hold norgestimate-ethinylestradiol. (2) NSTEMI (non-ST elevated myocardial infarction): The patient will be admitted to telemetry for serial cardiac enzymes, serial EKG's, cardiac rhythm monitoring and a 2-D echocardiogram with Dopplers. Heparin drip as noted above. Consult cardiology. (3) Breast lesion: The patient reports having had regular mammograms, and last year was called back in for additional testing, that was reportedly negative. Encourage her to follow-up earlier at her earliest convenience with the breast care center to reassess the left 3.8 cm breast lesion. (4) Diabetes mellitus: Hold metformin XR 750 mg p.o. twice daily. Placed on Accu-Cheks before meals and at bedtime with NovoLog coverage per scale (5) Hypothyroidism (acquired): Continue levothyroxine sodium 25 mcg p.o. daily (6) Hypertension: Hold losartan/HCTZ for now, due to borderline potassium and possible need for addition of a negative inotrope for heart rate control. Subjective See Dr. Love's H&P for details on history and physical exam Physical Exam Vital Signs (Past 24 Hours): Last Vital Signs Temp 36.7 C 02/09/19 07:10 Pulse 92 H 02/09/19 07:10 Resp 20 02/09/19 07:10 BP 110/74 02/09/19 07:10 Pulse Ox 96 02/09/19 07:10 Resident Activity Tracking Resident Involvement: Resident Care Provided Care Provided: Adult Hospital Medicine
[2019-02-09 07:56] LABS: Basophils # (auto) 0.03 K/uL (0-0.2); Basophils % (auto) 0.4 %; Eosinophils % (auto) 1.2 %; Hematocrit (blood only) 39.6 % (37-47); Hemoglobin 13.4 g/dL (12.0-16.0); Immature Granulocytes # (auto) 0.03 K/uL (0.00-0.02); Immature Granulocytes % (auto) 0.4 %; Lymphocytes # (auto) 2.95 K/uL (1.2-3.4); Mean Corpuscular Hgb Conc 33.8 g/dL (32-36); Mean Corpuscular Volume 87.4 fL (80-100); Mean Platelet Volume 10.4 fL (7.4-10.4); Monocytes # (auto) 0.72 K/uL (0.11-0.59); Monocytes % (auto) 8.5 %; Neutrophils # (auto) 4.61 K/uL (1.4-6.5); Neutrophils % (auto) 54.5 %; Platelet Count 204 K/uL (130-400); RDW Coefficient of Variation 13.6 % (11.5-14.5); RDW Standard Deviation 43.3 fL (36.4-46.3); Red Blood Count 4.53 M/uL (4.2-5.4); White Blood Count 8.44 K/uL (4.8-10.8)
[2019-02-09 08:17] LABS: BUN Creatinine Ratio 8.7 (10-20); Calcium 9.4 mg/dl (8.5-10.1); Creatinine Clr Calc Pharmacy 101.5 ml/min; Est GFR (African American) 83.1; Est GFR (Non-African American) 71.7; Potassium 3.6 mmol/L (3.5-5.1)
[2019-02-09 08:24] LABS: Troponin I 0.058 ng/ml (0-0.045)
[2019-02-09] MEDS ORDERED: CHOLECALCIFEROL 1,000 UNITS TAB PO SCH (09:00)
[2019-02-09] MEDS ORDERED: NON-FORMULARY MEDICATION (Biotin 1 MG) PO SCH (09:00)
[2019-02-09] MEDS ORDERED: ASCORBIC ACID 500 MG TAB PO SCH (09:00)
[2019-02-09] MEDS ORDERED: MONTELUKAST SODIUM 10 MG TABLET PO SCH ×2 (09:00→21:00)
[2019-02-09] MEDS ORDERED: MULTIVITAMIN TAB PO SCH (09:00)
[2019-02-09] MEDS ORDERED: CALCIUM 600MG + VIT D 400 IU TAB PO SCH (09:00)
--- NOTE | 2019-02-09 09:16 | Cardiology Consultation ---
Date of Consultation February 09, 2019 Assessment & Plan (1) Bilateral pulmonary embolism: -- Continue IV Heparin drip for the time being. -- Consider Coumadin vs Eliquis vs Xarelto. -- O2 sats are staying > 90% -- Hemodynamically stable. (2) Elevated troponin I level: --Ms. Crowder is a 48 year old female with a past medical history of Hypertension, Hypothyroidism, and PCOS who presented to with complaints of shortness of breath and chest tightness. --Serial Troponin I level drawn on 02/09/2019 was decreased to 0.058 from 0.082 yesterday. --Patient is hemodynamically stable at this time. --Elevated Troponin is secondary to RV strain due to her bilateral pulmonary emboli. (This is NOT an acute coronary syndrome or an NSTEMI. --A trans-thoracic echocardiogram will be ordered to evaluate. Supervising Physician Co-Signing Physician Notes Nicholas Dai MD History of Present Illness Reason for Consultation: -- Elevated Troponin I level. -- Bilateral Pulmonary Emboli. Requesting Physician: Remberto Nguyen DO Attending Physician: Nicholas Dai MD History of Present Illness Ms. Crowder is a 48-year-old female with a past medical history of Hypertension, Hypothyroidism, Type 2 DM, PCOS, and Obesity. She was seen by cardiology today due to an elevated Troponin I of 0.082 on admission. She presented to the Emergency Department on Friday with complaints of chest tightness and shortness of breath that was ongoing for the past few days. She was found to have bilateral pulmonary emboli in addition to the elevated Troponin. Today, she states that she still has mild chest discomfort in the anterior chest wall. She denies any pain or radiation into the neck, jaw, or arms. She states that she has not felt short of breath since her admission, but admits to not doing much activity. She has been taking OCP's for the last 15 years for regulation of her menstrual cycles due to her PCOS, but denies ever smoking cigarettes. She denies any palpitations, orthopnea, PND, claudication, edema, or leg swelling. She denied any family history of blood clots or any clotting disorders, recent travel, or surgeries. Allergies Allergy/AdvReac Type Severity Reaction Status Date / Time Tetracyclines AdvReac Severe chest Verified 02/08/19 23:02 tightness erythromycin base AdvReac yeast Verified 02/08/19 23:02 infection Home Medications Home Medications Medication Instructions Recorded Confirmed Type ascorbic acid (vitamin C) [Vitamin 500 mg PO DAILY 02/08/19 02/08/19 History C] biotin 1 mg PO DAILY 02/08/19 02/08/19 History calcium carbonate-vitamin D3 1 tab PO DAILY 02/08/19 02/08/19 History [Calcium 500 + D (D3)] cholecalciferol (vitamin D3) 1,000 unit PO DAILY 02/08/19 02/08/19 History [Vitamin D3] clonazepam [Klonopin] 0.5 mg PO BID PRN 02/08/19 02/08/19 History fluticasone propionate [Flonase 2 spray INTRANASAL DAILY PRN 02/08/19 02/08/19 History Allergy Relief] levothyroxine [Synthroid] 25 mcg PO DAILY 02/08/19 02/08/19 History losartan-hydrochlorothiazide 1 tab PO DAILY 02/08/19 02/08/19 History [Hyzaar] meloxicam [Mobic] 15 mg PO DAILY 02/08/19 02/08/19 History metformin [Glucophage XR] 750 mg PO BID 02/08/19 02/08/19 History montelukast [Singulair] 10 mg PO DAILY 02/08/19 02/08/19 History multivitamin 1 tab PO DAILY 02/08/19 02/08/19 History rivaroxaban [Xarelto] 15 mg PO BID 21 Days #42 tab 02/09/19 Rx rivaroxaban [Xarelto] 20 mg PO DAILY #30 tab 02/09/19 Rx Patient History Medical History Breast lesion on mammography Diabetes mellitus type 2 in obese Elevated troponin HTN (hypertension) Hypothyroidism Pulmonary embolism, bilateral Surgical History Mammography less than 12 months ago Social History Preferred Language: Azeri Beliefs That Will Affect Care: None Current Living Situation: Alone Other Information That Helps Us Care for You: No Feels Safe at Home: Yes Safety Concerns: Feels Safe At This Time Smoking Status: Never smoker Hx Alcohol Use: Yes Hx Substance Use: No Review of Systems Constitutional: no fever, no chills, no fatigue and no weakness Respiratory: no cough and no dyspnea Cardiovascular: as per Subjective / HPI Physical Exam Vital Signs (Past 24 Hours): Last Vital Signs Temp 36.7 C 02/09/19 07:10 Pulse 94 H 02/09/19 07:25 Resp 20 02/09/19 07:10 BP 110/74 02/09/19 07:10 Pulse Ox 96 02/09/19 07:10 Physical Exam: General: Patient in no acute distress. HEENT: Head is atraumatic, normocephalic. Sclerae anicteric. Facies symmetric. No perioral cyanosis. Neck: No JVD. Carotid upstrokes +2 bilaterally without bruits. JVP is at the level of the clavicle sitting upright. Chest and Lungs: Clear to auscultation throughout all lung marie, no wheezes, rales, or rhonchi. CVS: S1 and S2 are regular without murmurs, gallops, or rubs. PMI is nonpalpable. No lifts, heaves, or thrills. No abdominal aortic or renal bruits. Abdominal Exam: Bowel sounds present. No masses, organomegaly, or tenderness. Extremities: No clubbing, cyanosis, or edema. Intact posterior tibial and radial pulses bilaterally. No calf pain with dorsiflexion of foot. No edema present in bilateral lower extremities. Neurologic Exam: Patient is awake, alert, and oriented. Pleasant and cooperative. Answers questions appropriately. Speech is clear. Normal movement in all 4 extremities. Gait pattern was not assessed. Results & Data Laboratory Results Laboratory Results - last 24 hr 02/08/19 02/08/19 02/08/19 21:26 21:26 21:27 WBC 10.87 H RBC 4.75 Hgb 14.3 Hct 41.6 MCV 87.6 MCH 30.1 MCHC 34.4 RDW Std Deviation 42.3 RDW Coeff of Izabel 13.3 Plt Count 207 MPV 10.3 Immature Gran % (Auto) 0.4 Neut % (Auto) 59.4 Lymph % (Auto) 30.1 [place] % (Auto) 9.0 Eos % (Auto) 0.8 Baso % (Auto) 0.3 Immature Gran # (Auto) 0.04 H Neut # (Auto) 6.46 Lymph # (Auto) 3.27 [place] # (Auto) 0.98 H Eos # (Auto) 0.09 Baso # (Auto) 0.03 PT 10.2 INR 1.0 APTT 23.9 PTT Ratio 0.9 Sodium 140 Potassium 3.5 Chloride 107 Carbon Dioxide 25 Anion Gap 8.0 BUN 9 Creatinine 1.13 Est Cr Clr Drug Dosing 85.3 Est GFR ( Amer) 66.6 Est GFR (Non-Af Amer) 57.4 BUN/Creatinine Ratio 8.1 L Glucose 106 H POC Glucose Estimat Average Glucose Hemoglobin A1c Calcium 9.8 Total Bilirubin 0.5 AST 26 ALT 35 Alkaline Phosphatase 91 Troponin I 0.082 H* Total Protein 8.0 Albumin 3.5 Globulin 4.5 H Albumin/Globulin Ratio 0.8 L Lipase 150 02/09/19 02/09/19 02/09/19 05:38 05:38 07:09 WBC RBC Hgb Hct MCV MCH MCHC RDW Std Deviation RDW Coeff of Izabel Plt Count MPV Immature Gran % (Auto) Neut % (Auto) Lymph % (Auto) [place] % (Auto) Eos % (Auto) Baso % (Auto) Immature Gran # (Auto) Neut # (Auto) Lymph # (Auto) [place] # (Auto) Eos # (Auto) Baso # (Auto) PT INR APTT 44.0 H PTT Ratio 1.6 Sodium Potassium Chloride Carbon Dioxide Anion Gap BUN Creatinine Est Cr Clr Drug Dosing Est GFR ( Amer) Est GFR (Non-Af Amer) BUN/Creatinine Ratio Glucose POC Glucose 109 H Estimat Average Glucose 105 Hemoglobin A1c 5.3 Calcium Total Bilirubin AST ALT Alkaline Phosphatase Troponin I Total Protein Albumin Globulin Albumin/Globulin Ratio Lipase 02/09/19 02/09/19 07:42 07:42 WBC 8.44 RBC 4.53 Hgb 13.4 Hct 39.6 MCV 87.4 MCH 29.6 MCHC 33.8 RDW Std Deviation 43.3 RDW Coeff of Izabel 13.6 Plt Count 204 MPV 10.4 Immature Gran % (Auto) 0.4 Neut % (Auto) 54.5 Lymph % (Auto) 35.0 [place] % (Auto) 8.5 Eos % (Auto) 1.2 Baso % (Auto) 0.4 Immature Gran # (Auto) 0.03 H Neut # (Auto) 4.61 Lymph # (Auto) 2.95 [place] # (Auto) 0.72 H Eos # (Auto) 0.10 Baso # (Auto) 0.03 PT INR APTT PTT Ratio Sodium 142 Potassium 3.6 Chloride 109 H Carbon Dioxide 26 Anion Gap 8.0 BUN 8 Creatinine 0.94 Est Cr Clr Drug Dosing 101.5 Est GFR ( Amer) 83.1 Est GFR (Non-Af Amer) 71.7 BUN/Creatinine Ratio 8.7 L Glucose 106 H POC Glucose Estimat Average Glucose Hemoglobin A1c Calcium 9.4 Total Bilirubin AST ALT Alkaline Phosphatase Troponin I 0.058 H* Total Protein Albumin Globulin Albumin/Globulin Ratio Lipase Medications Administered Active Medications Generic Name Dose Route Start Last Admin Trade Name Freq PRN Reason Stop Dose Admin Acetaminophen 650 mg 02/09/19 03:03 Tylenol PO 03/11/19 03:02 Q4H PRN Pain or Fever Al Hydrox/Mg Hydrox/Simethicone 15 ml 02/09/19 03:03 Maalox PO 03/11/19 03:02 Q4H PRN Dyspepsia Ascorbic Acid 500 mg 02/09/19 09:00 02/09/19 08:01 Vitamin C PO 03/11/19 08:59 500 mg DAILY RODRIGUEZ Administration Clonazepam 0.5 mg 02/09/19 03:03 02/09/19 03:46 Klonopin PO 03/11/19 03:02 0.5 mg BID PRN Administration Anxiety Fluticasone Propionate 2 sprays 02/09/19 03:03 Flonase JEROD 03/11/19 03:02 DAILY PRN Congestion Heparin Sodium/Dextrose 25,000 units in 500 mls @ 36 mls/hr 02/09/19 03:45 02/09/19 06:59 Heparin Sodium/Dextrose IV 03/11/19 03:44 1,800 units/hr .[id number] RODRIGUEZ 36 mls/hr Administration Protocol 1,800 UNITS/HR Ioversol 125 ml 02/08/19 22:43 02/08/19 22:43 Optiray 320 125ml IV 02/12/19 22:42 119 ml ONCE PRN Administration Interaction Checking Levothyroxine Sodium 25 mcg 02/09/19 06:30 02/09/19 05:41 Synthroid PO 03/11/19 06:29 25 mcg DAILYBB RODRIGUEZ Administration Magnesium Hydroxide 30 ml 02/09/19 03:03 Milk Of Magnesia PO 03/11/19 03:02 Q12H PRN Constipation Montelukast Sodium 10 mg 02/09/19 21:00 Singulair PO 03/11/19 20:59 HS RODRIGUEZ Morphine Sulfate 2 mg 02/09/19 03:03 Morphine Sulfate IV 02/23/19 03:02 Q2H PRN Chest Pain Multivitamins 1 tab 02/09/19 09:00 02/09/19 08:01 Multivitamin Tab PO 03/11/19 08:59 1 tab DAILY RODRIGUEZ Administration Multivitamins/Minerals 1 tab 02/09/19 09:00 02/09/19 08:00 Caltrate Plus PO 03/11/19 08:59 1 tab DAILY RODRIGUEZ Administration Ondansetron HCl 4 mg 02/09/19 03:03 Zofran IV 03/11/19 03:02 Q6H PRN Nausea Polyethylene Glycol 17 gm 02/09/19 03:03 Miralax Powder Packet PO 03/11/19 03:02 DAILY PRN Constipation Vitamin D 1,000 units 02/09/19 09:00 02/09/19 08:01 Vitamin D3 PO 03/11/19 08:59 1,000 units DAILY RODRIGUEZ Administration ECG Additional Comments: Initial EKG showed sinus tachycardia with nonspecific ST segment abnormalities.
--- NOTE | 2019-02-09 12:07 | Pulmonary Consultation ---
Date of Consultation February 09, 2019 Assessment & Plan (1) Bilateral pulmonary embolism: * Patient presents with bilateral pulmonary emboli with no prior history of thromboembolic disease. * Lifelong non-smoker; no malignancy or history of malignancy; no history of atrial fibrillation or flutter or other tachyarrhythmia. * Would recommend stopping oral control * No other risk factors evident * Lower extremity duplex was negative for bilateral DVTs. * CTA of the chest revealed some right heart strain. * Troponin slightly elevated most likely secondary to a leak due to the emboli * Echocardiogram ordered and completed; report is pending * Patient started on heparin drip on admission * At this time there is nothing further from a pulmonary perspective to follow- up with this patient. Would recommend 3-6 months of anticoagulation. Further workup outpatient as needed At this time we will sign off from this patient. Thank you for including us in the care of this patient. Please feel free to reconsult as needed Please refer to Dr. Galvin's addendum for further recommendations. Supervising Physician Co-Signing Physician Notes seen and examined with Zaid Mendez. agree with above except as noted below 48 y/o female with shortness of breath found to have bilateral PE with initial evidence of RV strain echo today does not show any further evidence of RV strain she is on control but has no clear inciting event. no recent long trip. no recent surgeries. no family history of bleeding or clotting problems. continue anticoagulation. can switch to apixiban she does not have a true inciting event and may need lifelong treatement T/C hypercoagulable workup. she gets yearly mammogram and is uptodate on screening Marv Galvin Pulmonary/Critical care medicine History of Present Illness Reason for Consultation: Bilateral pulmonary emboli without evidence of saddle embolus Requesting Physician: Dr. Nguyen Attending Physician: Remberto Nguyen, History of Present Illness Attending: Dr. Glavin Is a 48-year-old female with limited past medical history the presented with shortness of breath. She was found to have bilateral pulmonary emboli but no evidence of saddle emboli. She reports that for the last couple of days she has had some increased fatigue and shortness of breath. She did notice that she had one episode of tachyarrhythmia with the first onset of shortness of breath. She is brought in through the emergency department and found to have an elevated troponin. She also had a CTA of the chest which revealed bilateral pulmonary emboli. The patient is on oral control but no other hormone treatment. She has no history of previous blood clots and there is no evidence of family history. Patient also reports there is no history of sudden that was unexplained in any relatives. The patient is a lifelong non-smoker. 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 She has been in her usual level of activity and has completed all of her own daily activities of living. She has no recent travel. She denied any lower extremity swelling and specifically no asymmetrical edema. She does report that she had an episode of what felt like a charley horse in the morning that she woke up with shortness of breath. She was started on heparin as an inpatient and most likely will be converted to Xarelto for discharge. She currently denies fever, sweats, chills, rigors. She has no pleuritic chest pain. She denies hemoptysis. She is oxygen well on room air. She denies any shortness of breath. She has no back pain or flank pain. She has no other acute complaints at this time. The patient does have a history of breast lump on the left. She recently had mammograms and confirmed fibrosis which has been there for many years. She has no history of malignancy. Allergies Allergy/AdvReac Type Severity Reaction Status Date / Time Tetracyclines AdvReac Severe chest Verified 02/08/19 23:02 tightness erythromycin base AdvReac yeast Verified 02/08/19 23:02 infection Home Medications Home Medications Medication Instructions Recorded Confirmed Type ascorbic acid (vitamin C) [Vitamin 500 mg PO DAILY 02/08/19 02/08/19 History C] biotin 1 mg PO DAILY 02/08/19 02/08/19 History calcium carbonate-vitamin D3 1 tab PO DAILY 02/08/19 02/08/19 History [Calcium 500 + D (D3)] cholecalciferol (vitamin D3) 1,000 unit PO DAILY 02/08/19 02/08/19 History [Vitamin D3] clonazepam [Klonopin] 0.5 mg PO BID PRN 02/08/19 02/08/19 History fluticasone propionate [Flonase 2 spray INTRANASAL DAILY PRN 02/08/19 02/08/19 History Allergy Relief] levothyroxine [Synthroid] 25 mcg PO DAILY 02/08/19 02/08/19 History losartan-hydrochlorothiazide 1 tab PO DAILY 02/08/19 02/08/19 History [Hyzaar] meloxicam [Mobic] 15 mg PO DAILY 02/08/19 02/08/19 History metformin [Glucophage XR] 750 mg PO BID 02/08/19 02/08/19 History montelukast [Singulair] 10 mg PO DAILY 02/08/19 02/08/19 History multivitamin 1 tab PO DAILY 02/08/19 02/08/19 History norgestimate-ethinyl estradiol 1 tab PO DAILY 02/08/19 02/08/19 History [Sprintec (28)] Patient History Medical History Breast lesion on mammography Diabetes mellitus type 2 in obese Elevated troponin HTN (hypertension) Hypothyroidism Pulmonary embolism, bilateral Surgical History Mammography less than 12 months ago Social History Communication Ability: Effective Beliefs That Will Affect Care: None Current Living Situation: Alone Other Information That Helps Us Care for You: No Feels Safe at Home: Yes Safety Concerns: Feels Safe At This Time Smoking Status: Never smoker Hx Alcohol Use: Yes Hx Substance Use: No Review of Systems A total of 12 systems was reviewed and is negative other than as listed above in the HPI Physical Exam Vital Signs (Past 24 Hours): Last Vital Signs Temp 36.8 C 02/09/19 10:50 Pulse 98 H 02/09/19 10:50 Resp 18 02/09/19 10:50 BP 121/85 02/09/19 10:50 Pulse Ox 95 02/09/19 10:50 Physical Exam: GENERAL : No acute distress EYES: No icterus, gaze conjugate NOSE: No evidence of epistaxis MOUTH: No lesions or candidiasis. Mucosa moist NECK: Supple. No distention of neck veins LUNGS: CTA B/L, no wheezes, rales or rhonchi. Good aeration in all lung zones. HEART: Regular, rate controlled. No appreciation of ectopy ABDOMEN: Soft, NT, ND, BS Present EXTREMITIES: No LE edema, pedal pulses intact. No edema around sock lines NEURO: A&OX3 Results & Data Laboratory Results 02/09/19 07:42 02/09/19 07:[address] ANGIOGRAM OF THE CHEST CLINICAL HISTORY: Atypical chest pain. COMPARISON STUDY: Chest x-ray dated 02/08/2019. TECHNIQUE: Following the IV administration of 119 cc of Optiray 320, CT angiogram of the chest was performed from the upper abdomen to the thoracic inlet utilizing the pulmonary embolus protocol. Images are reviewed in the axial, sagittal, and coronal planes. 3-D MIPS images are created and assessed. IV contrast was administered without complication. A dose lowering technique was utilized adhering to the principles of ALARA. The examination is degraded by large body habitus, and by streak artifact from the body wall abutting the CT gantry. CT DOSE: 564.42 mGycm FINDINGS: Thyroid: Imaged portions of the thyroid gland are normal in size and attenuation. Thoracic aorta: The thoracic aorta is normal in caliber and demonstrates standard 3-vessel arch anatomy. No dissection is seen. Pulmonary vasculature: The pulmonary trunk is mildly dilated measuring up to 3.2 cm in diameter. This suggests pulmonary artery hypertension. There are bilateral pulmonary emboli. Large filling defect identified within the right upper, middle, and lower lobe pulmonary artery branches. These extend into Segmental and subsegmental branches. Segmental and subsegmental pulmonary bladder also se en within branches of the left upper and left lower lobe pulmonary arteries. Heart: The heart is normal in size and without pericardial effusion. Lungs and pleural spaces: The lungs and pleural spaces are clear. The trachea and central airways are patent. Mediastinum: There is no mediastinal lymphadenopathy. Kim: Clear. Axillae: There is no axillary lymphadenopathy. Upper abdomen: The liver is enlarged and steatotic. There is a tiny hiatal hernia. Skeletal structures: No lytic or blastic bony lesions are seen. Soft tissues: There is a 3.8 cm asymmetric density identified in the left breast as seen on image #200. IMPRESSION: 1. Extensive bilateral pulmonary emboli as above. 2. The lungs are clear. 3. There is a 3.8 cm asymmetric density identified in the left breast. Although not well assessed by CT, neoplasm could have this appearance. Follow-up at the breast center for mammogram and targeted ultrasound is recommended. 4. Hepatomegaly and hepatic steatosis. 5. Additional findings as above. Electronically signed by: Zaid Borges M.D. 02/08/2019 11:02 PM BILATERAL LOWER EXTREMITY VENOUS DOPPLER CLINICAL HISTORY: Pulmonary emboli. COMPARISON STUDY: No previous studies for comparison. TECHNIQUE: Sonography of the deep venous system of the bilateral lower extremities was performed. Compression and augmentation were evaluated. FINDINGS: The bilateral common femoral, superficial femoral and popliteal veins were compressible. Augmentation was normal. Flow was shown within the deep calf vessels. IMPRESSION: No evidence of deep venous thrombus within the bilateral lower extremities. Electronically signed by: Jaime Vargas M.D. 02/09/2019 6:44 AM
[2019-02-09] MEDS ORDERED: PERFLUTREN LIPID MICROSPHERE (DEFINITY) IV ONE (12:29)
[2019-02-09 14:31] LABS: Partial Thromboplastin Ratio 1.9
[2019-02-09 14:32] LABS: Partial Thromboplastin Time 50.2 Seconds (21.0-31.0)
--- NOTE | 2019-02-09 17:50 | Discharge Summary ---
Date of Service February 09, 2019 Admission HPI Per Admitting Provider The patient is a 48-year-old female who presents to the emergency department with intermittent chest pain/pressure over the past few days, with an abnormal d-dimer blood test in the outpatient setting, and also relates difficulty with an episode of right lower extremity cramping that began prior to the chest discomfort. She has not had any recent travels or sick exposures. She has never had clots in the past, and there is no family history of clots. She does have an intermittent nonproductive cough, and denies any fevers or chills. Admission Exam Per Admitting Provider The patient is awake, alert and oriented 3, well developed and well nourished, normocephalic and atraumatic, lying in bed and in no acute distress. HEENT--PERRL, EOMI, mucous membranes and oropharynx dry. Neck--supple. No JVD. No bruits. Thyroid normal, trachea midline, no adenopathy. Heart--normal S1 and S2. No murmurs, rubs or gallops. Lungs--clear bilaterally, no respiratory distress, no accessory muscle use. Abdomen--normal bowel sounds and soft. Nontender. Nondistended, no hernias or masses, no organomegaly. Extremities--no cyanosis or clubbing. Right lower extremity with trace to 1+ pitting edema and approximately 1-1/4- 1 1/2 times the size of the left. There are good distal pulses b/l. Dermatologic--normal skin turgor, normal color, no abnormal lymph nodes, no rash. Neurologic--cranial nerves II through XII grossly intact. Rheumatologic--normal range of motion. Psychiatric--normal affect. Principal Diagnosis Pulmonary Emboli Discharge Exam Constitutional WD/WN, vitals as above Respiratory normal respiratory effort, lungs clear to auscultation Cardiovascular RRR, no murmur, no edema Gastrointestinal (Abdomen) Percussion/Palpation: abdomen soft; abdomen nontender, no guarding and abdomen not rigid Skin no rashes, warm and dry Discharge Data Allergies Allergy/AdvReac Type Severity Reaction Status Date / Time Tetracyclines AdvReac Severe chest Verified 02/08/19 23:02 tightness erythromycin base AdvReac yeast Verified 02/08/19 23:02 infection Consultations 02/08/19 22:51 ED Decision to Admit Stat 02/09/19 03:03 Consult Case Management - Discharge Planning Routine Ordered Studies 02/08/19 21:16 CT angio chest PE protocol Stat 02/09/19 00:57 US venous doppler [facility] Urgent Hospital Course (1) Bilateral pulmonary embolism: Ms. Crowder is a 48 year old female with a past medical history of HTN, Hypo thyroidism, and PCOS who presented to [facility] due to chest pain. - CTA showed bilateral pulmonary emboli w/right heart strain - pt's risk factors included obesity, sedentary lifestyle and OCP use. No family hx of clots or hypercoagulable disorders. - pt had mildly elevated troponin at 0.082 - ECHO -> no RMWA, EF = 70%, mild TR - treated with heparin drip, and then transitioned to Xarelto. Will treat for 6 months - Lower extremity venous Dopplers negative. - d/c OCP (2) Breast lesion: - CTA showed left 3.8 cm breast lesion -> from review of records, pt has had this lesion since 2010 and has been stable. No additional workup necessary (3) Hypothyroidism (acquired): (4) Hypertension: Total Time Total Time Spent Total Time Spent (In Minutes): >30 Discharge Plan Discharge Items Patient Disposition: Home - Self-Care Reason For Visit: EXTENSIVE B/L PE, NSTEMI Discharge Diagnosis: Pulmonary Embolism Discharge Goals: Decrease discomfort and Learn about illness Activity: Resume your previous activity Non-emergency contact: Primary Care Provider Call non-emergency contact if: you have any medication questions and your symptoms worsen Follow-up/Referrals: Kristi Lan MD [Primary Care Provider] - 02/17/19 9:10 am (You have a follow up appointment scheduled with Dr. Kristi Gonzalez's Physician Cardroom Manager, Salina Chen, on Saturday 02/17 at 9:10am. If you have any questions or need to reschedule, please call the office at [phone]) Diet: Regular Addtl Provider Instructions: Ms. Crowder, you were admitted to [facility] due to several blood clots that were found in your lungs. 1) Blood Clots - we treated you with heparin, the IV blood thinning medication, and will be sending you home on an oral blood thinner to take for the next 3-6 months, depending on how you are recovering. Taking control pills can increase your risk of having another blood clot, and therefore we have discontinued your Sprintec. We will be sending you on xarelto (rivaraxoban) -- it will be 15mg twice a day for the first three weeks, then 20mg daily thereafter. Try to take it at about the same time of day as best as possible. While there aren't any truly worrisome interactions, the one theoretical problem would be that anti-inflammatories can lead to stomach irritation and ulcers; stomach irritation and ulcers can bleed; and if you have bleeding on a blood thinner, the bleeding is amplified. Meloxicam is definitely one of the lower risk anti-inflammatories as far as leading to stomach problems, but we would recommend taking it as-needed instead of just every day/regularly while you're on the xarelto. 2) Lesion in left breast - this has been stable on your mammograms since 2010. You do not need to pursue additional testing for this, and can stick to your regular mammogram schedule. 3) Heart - troponin, which is the enzyme that measures damage to your heart, went up slightly, which indicates a small amount of strain on your heart from the blood clots. Your ECHO (ultrasound) of your heart, looked normal. Prescriptions: New Xarelto 15 mg tablet 15 mg PO BID 21 Days Qty: 42 RF: 0 Xarelto 20 mg tablet 20 mg PO DAILY Qty: 30 RF: 2 Continued multivitamin Tablet 1 tab PO DAILY RF: 0 meloxicam [Mobic] 15 mg tablet 15 mg PO DAILY RF: 0 clonazepam [Klonopin] 0.5 mg tablet 0.5 mg PO BID PRN (Reason: Anxiety) RF: 0 levothyroxine [Synthroid] 25 mcg tablet 25 mcg PO DAILY RF: 0 losartan-hydrochlorothiazide [Hyzaar] 100-25 mg tablet 1 tab PO DAILY RF: 0 ascorbic acid (vitamin C) [Vitamin C] 500 mg Tablet 500 mg PO DAILY RF: 0 montelukast [Singulair] 10 mg tablet 10 mg PO DAILY RF: 0 fluticasone propionate [Flonase Allergy Relief] 50 mcg/actuation [place],Suspension 2 spray INTRANASAL DAILY PRN (Reason: Congestion) RF: 0 cholecalciferol (vitamin D3) [Vitamin D3] 1,000 unit Capsule 1,000 unit PO DAILY RF: 0 metformin [Glucophage XR] 750 mg tablet extended release 24 hr 750 mg PO BID RF: 0 calcium carbonate-vitamin D3 [Calcium 500 + D (D3)] 500 mg(1,250mg) -125 unit Tablet 1 tab PO DAILY RF: 0 biotin 1 mg Capsule 1 mg PO DAILY RF: 0 Discontinued norgestimate-ethinyl estradiol [Sprintec (28)] 0.25-35 mg-mcg tablet 1 tab PO DAILY RF: 0 Stand-Alone Forms: Call Back Authorization, [facility] Discharge Orders: Discharge Order (Routine); Ordered 02/09/19 Ordered By: Remberto Nguyen Admission Data Admit Date/Time: 02/09/19 00:40 Attending Provider: Remberto Nguyen Admit Provider: Harlan Love Primary Care Provider: Kristi Lan Other Providers: Harlan Love Service: Telemetry Other Interventions: Discharge Summary Assessment (RN) Last Done: 02/09/19 18:20 Supervising Physician Co-Signing Physician Notes I personally examined the patient and verified all maier points of history and exam, discussed case, and agree with decision making with Dr Guerrero. Feeling okay, still is a degree of dyspnea on exertion but no dyspnea at rest no pleuritic pain. Extensive and lengthy discussion with patient and her family, answering all questions to the best my ability and to their satisfaction. Vitals noted, in general she is in no distress. HEENT normal cephalic atraumatic mucous members moist. Breathing is unlabored no accessory muscle use. Skin shows no rashes no pallor or icterus. Exam otherwise as above. 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 Stop control. Secondary risk reduction discussed, including improving lifestyle and in future travel endeavors/prolonged immobility times walking at least 5 minutes out of the hour. She appears stable for home, we will transition off of heparin to Xarelto this evening and let her go home. Anticipate a need for Xarelto for 3-6 months depending on her recovery. Discussed bleed risk and management in depth. Discussed gradual return to ac tivity and gradually increasing activity as tolerated. Stable for home Resident Activity Tracking Resident Involvement: Resident Care Provided Care Provided: Adult [facility]
[2019-02-09] MEDS ORDERED: RIVAROXABAN 15 MG TAB PO ONE (19:00)
[2019-02-09] MEDS ORDERED: *HEPARIN INFUSION*STOP ORDER ONE (19:00)
== END 2019-02-09 19:30 | disposition home or self-care (01) | DRG 176 ==
LOC: ED 21:02 → 2S 02-09 00:40 → SUATTDRO 02-09 00:40 → 2S 02-09 01:58